=== PATIENT | female | born 1995 | race Caucasian/White ===

== ENCOUNTER 2020-08-04 15:40 | Observation (INO) | payer OTHER, SELFPAY ==
[2020-08-04 16:38] VITALS: BMI 34.8
[2020-08-04 16:40] VITALS: BP 128/77; PULSE 87
--- NOTE | 2020-08-04 16:40 | OBADM ---
This patient, Farzana Johnson, admitted to the OB room Labor/Delivery/Recovery 119 for observation. Patient is oriented to hospital policies and general routines including ID bracelet, bed and alarms, visiting hours, pain management, procedures, bathroom and other care routines, personal items, smoking policy, room service/diet, call light, and visiting hours. Patient is encouraged to report perceived risks to care and to ask questions if she does not understand what she is told or what she should do.
--- NOTE | 2020-08-24 09:08 | PM.OBTRLD ---
OB - Triage/Final Diagnosis Visit Information Comments/Additional reasons for admission: I have assessed the risk for this patient, Farzana Johnson, and determined that she would benefit from observation care. Final Diagnosis (1) Abdominal pain affecting : Code(s): O26.899 - Other specified related conditions, unspecified trimester; R10.9 - Unspecified abdominal pain Status: Acute
== END 2020-08-04 17:22 | disposition home or self-care (01) ==
PROVIDERS: Admitting Provider Obstetrics & Gynecology; PCP Family Medicine; Visit Provider Obstetrics & Gynecology
DX: O26.899 Other specified pregnancy related conditions, unspecified trimester (principal); R10.9 Unspecified abdominal pain; Z3A.00 Weeks of gestation of pregnancy not specified
CPT/HCPCS: G0378; G0379

== ENCOUNTER 2020-08-15 10:02 | Inpatient (IN) | payer OTHER, SELFPAY ==
[2020-08-15] VITALS (59 sets, daily range): BP systolic 87–143; BP diastolic 55–106; PULSE 66–115; RESP 16; TEMP 36.2–36.6; O2SAT 92–100; BMI 36.1
[2020-08-15] MEDS: LACTATED RINGERS 1,000 ML 999 ML IV CONT (12:39)
--- NOTE | 2020-08-15 12:42 | OBADM ---
This patient, Farzana Johnson, admitted to the OB room Labor/Delivery/Recovery 105 for observation. Patient/family oriented to hospital policies and general routines including ID bracelet, bed and alarms, visiting hours, pain management, procedures, bathroom and other care routines, personal items, smoking policy, room service/diet, and visiting hours. Patient/Family are encouraged to report perceived risks to care and to ask questions if they do not understand what they are told or what they should do.
--- NOTE | 2020-08-15 13:13 | P.PNOB_ITS ---
OB - Triage/Final Diagnosis Visit Information Date of evaluation: 08/15/20 Reason for evaluation: threatened labor Comments/Additional reasons for admission: I have assessed the risk for this patient, Farzana Johnson, and determined that she would benefit from obse rvation care.
--- NOTE | 2020-08-15 14:14 | WPDANESEPPF ---
Anes - Initial Pre Proc Eval Date/Time: 08/15/20 14:14 Surgeon: Castro Araya MD Pre Op Diagnosis: ctx Patient Data Age: 24 Gender: F Height: Weight: Allergies Allergy/AdvReac Type Severity Reaction Status Date / Time Penicillins Allergy Unknown rash Verified 08/04/20 16:37 Home Medications Medication Instructions Recorded Confirmed Type prenat.vits,francisco,[id number] 1 tablet PO DAILY 08/04/20 08/15/20 History Patient hx anesthesia problems: none Family hx anesthesia problems: none PMFSH Past Medical History Medical History (Updated 08/15/20 @ 14:14 by Castro Hernandez MD) Lumbar paraspinal muscle spasm Surgical History Surgical History (Updated 08/15/20 @ 14:14 by Castro Hernandez MD) Hx of tonsillectomy Family History Family History Grandparent Family history of heart disease in male family member before age 55 Hypertension Mother Hypertension Social History Social History Smoking status: Never smoker Alcohol intake: never Substance use: never Spiritual care concerns: No Anes - Eval Final PreProcedure Day of Procedure 08/15/20 14:14 Patient weight: overweight Heart: regular rate and rhythm Lungs: clear to auscultation Airway: Mallampati scale class II Neurological: alert and oriented Last oral intake: >/= 8 hours ASA classification: II Emergent: no Anesthetic plan: proceed Anesthesia type and monitoring: regional spinal and standard monitoring Informed Consent: The patient's anesthetic plan and its attendant risks and benefits were discussed with the patient/family/POA. Questions were solicited and answers provided to the satisfaction of the patient/family/POA.
[2020-08-15 14:23] LABS: Basophils Percent Auto 0.1 % (0.2-1.2); Eosinophils Percent Auto 0.1 % (0-4.4); Hematocrit 36.4 % (37.0-47.0); Hemoglobin 11.7 g/dL (12.0-15.0); Immature Granulocyte Absolute 0.06 K/mm3 (0.00-0.031); Immature Granulocyte Percent A 0.5 % (0-0.5); Lymphocytes Absolute Auto 1.46 K/mm3 (0.9-3.2); Lymphocytes Percent Auto 11.1 % (18.3-44.2); Mean Corpuscular HGB Conc 32.1 g/dl (32-36); Mean Corpuscular Hemoglobin 27.9 pg (26-34); Mean Corpuscular Volume 86.7 fl (80-100); Mean Platelet Volume 10.3 fl (7.4-10.4); Monocytes Absolute Auto 0.6 K/mm3 (0.1-0.6); Monocytes Percent Auto 4.4 % (2.6-8.5); Neutrophils Percent Auto 83.8 % (45.5-73.1); Platelet Count Result 179 k/mm3 (150-375); Red Cell Distribution Width 14.3 % (11.5-14.5); White Blood Count 13.1 K/mm3 (4.5-10.0)
[2020-08-15] MEDS: LACTATED RINGERS 1,000 ML 125 ML IV CONT (14:25)
--- NOTE | 2020-08-15 14:30 | PM.IMHP ---
H&P: HPI History of Present Illness Date/Time: 08/15/20 14:30 24-year-old 2 para 0010 is admitted at term in active labor for section. She had an active HSV and refuses attempted vaginal delivery. Risks and benefits reviewed Chief Complaint: labor Review of Systems Review of Systems: All systems reviewed & are unremarkable except as noted in HPI and below PMFSH Past Medical History Medical History Lumbar paraspinal muscle spasm Surgical History Surgical History Hx of tonsillectomy Family History Family History Grandparent Family history of heart disease in male family member before age 55 Hypertension Mother Hypertension Social History Social History Smoking status: Never smoker Alcohol intake: never Substance use: never Spiritual care concerns: No Meds Home Medications and Allergies Home Medications Medication Instructions Recorded Confirmed Type prenat.vits,francisco,[id number] 1 tablet PO DAILY 08/04/20 08/15/20 History Allergies Allergy/AdvReac Type Severity Reaction Status Date / Time Penicillins Allergy Unknown rash Verified 08/04/20 16:37 Vital Signs Vital Signs - 24 hr 08/15/20 14:16 Pulse Rate 89 Blood Pressure 143/78 H Exam Const: General: no acute distress Eyes: General: appearance normal, both eyes and all related structures Neck: Neck: supple and no JVD Thyroid: thyroid normal Resp: Effort & Inspection: normal respiratory effort Auscultation: clear to auscultation bilaterally Cardio: Rate: regular rate Rhythm: regular rhythm GI: Inspection: non-distended GI Palp: Yes Soft to palpation, No Tenderness to palpation present (GI) and No Guarding due to palpation present (GI) Auscultation: normal bowel sounds : General: Yes bladder normal to palpation External Female Exam: normal external appearance Speculum Exam - Vagina: normal vaginal discharge and No vaginal bleeding Speculum Exam - Cervix: nontender Bimanual exam- vagina & uterus: bladder normal to palpation and No Cervical tenderness present OB/external & speculum: No vaginal bleeding Skin: General skin exam: no rashes or lesions noted Extrem: General: normal to inspection and no edema Psych: Mental Status: mental status grossly normal Affect: normal affect H&P: Results Labs Labs: Short CBC 08/15/20 Range/Units 14:15 WBC 13.1 H (4.5-10.0) K/mm3 Hgb 11.7 L (12.0-15.0) g/dL Hct 36.4 L (37.0-47.0) % Plt Count 179 (150-375) k/mm3 Assessment and Plan Additional Plan impression: Term in active labor plan Plan: Low-transverse section
--- NOTE | 2020-08-15 14:33 | WPDHPUPDATE1 ---
History and Physical Update Update Date/Time: 08/15/20 14:33 History and Physical has been reviewed, including an updated exam of the patient. There are NO changes in the patient's condition. Risks, benefits, and alternatives have been discussed and questions answered. Patient agrees to proceed with procedure.
--- NOTE | 2020-08-15 15:20 | PM.PROC ---
Procedure Note - Detailed Date of procedure: 08/15/20 Pre-op diagnosis: ctx Surgeon: Castro Araya MD Postop diagnosis: 37 half week with active HSV in active labor Procedure: Low-transverse section Anesthesia: Spinal EBL: 545cc Findings: Female infant 37 and half weeks with weight of 711 and good cry Complications: Description of procedure: The patient was admitted in active labor. She did active HSV within the last week. Decision for low-transverse section was undertaken. She has taken the back. She was prepped and draped placed in the supine position. Under excellent spinal anesthetic the abdomen was entered in Pfannenstiel fashion progressive layers to the fascia. The fascia was incised in upward outward fashion bilaterally. The underlying muscles were sharply dissected and the parietal peritoneum elevated by Kimber clamps. This incision was carried superiorly and inferiorly the dome of the bladder. A bladder blade was placed and a bladder flap formed. The bladder blade replaced in the low-transverse incision made. The head delivered in the ALEXIS position. And anterior and posterior shoulder delivered spontaneously. Cord clamped x2 and cut and infant passed off the table with an excellent cry. Placenta delivered intact manually. Uterus delivered on the abdomen wrapped in a moist towel. After assuring no membranes or debris made in the uterus uterus was closed with continuous running locking 0 Vicryl from lateral edge to lateral edge. This was followed by a 2nd imbricating running 0 Vicryl from lateral edge to lateral edge. Hemostasis was assured. Ovaries and tubes appeared within normal limits. The uterus was returned to the abdomen the uterine incision inspected 1 last time. Hemostasis was assured. Laps were removed and accounted for. The fascia closed with continuous running 0 Vicryl from lateral edge to midline bilaterally. Irrigation the subcutaneous layer and the skin closed with 4 O Monocryl and glue. Blood loss was quantitated at 5:45 a.m.. All sponge, needle, instrument counts were correct. There were no complications noted
[2020-08-15] MEDS: ceFAZolin 2 GM/D5W 50 ML 2 GM/50 ML BAG IVPB (15:27)
--- NOTE | 2020-08-15 16:13 | LDADM ---
This patient, Farzana Johnson, was admitted to Labor/Delivery/Recovery 105 on 08/15/20 at 10:02. Plans for labor, pain management and were discussed with patient. Patient/family oriented to hospital policies and general routines including ID bracelet, bed and alarms, visiting hours, pain management, procedures, bathroom and other care routines, personal items, smoking policy, room service/diet and guest tray routines, security routines, call light, and visiting hours. Patient/Family are encouraged to report perceived risks to care and to ask questions if they do not understand what they are told or what they should do. Preparing for a section. See OBIX for further documentation.
[2020-08-15] MEDS: OXYTOCIN 30 UNITS/NS 500 ML 30 UNITS/500 ML BAG 125 UNITS IV CONT (16:45)
--- NOTE | 2020-08-15 19:19 | OBPPTRN ---
Patient transferred to post room #280 via stretcher. Support person present. Oriented to unit, room, information board, rooming in, admission packet and security measures. Patient verbalizes understanding. Infant with patient.
[2020-08-16] VITALS: BP 112/56; PULSE 88; RESP 16; TEMP 36.4; O2SAT 99
[2020-08-16] MEDS: HYDROcodone/acetaminophen (*CRX) 5-325 MG TABLET 1 TAB PO ×4 (05:29→23:14)
[2020-08-16] MEDS: IBUPROFEN 600 MG TABLET PO ×4 (05:29→23:15)
[2020-08-16 05:30] VITALS: BP 99/60; PULSE 77; RESP 16; TEMP 36.7; O2SAT 100
[2020-08-16 05:59] LABS: Basophils Percent Auto 0.1 % (0.2-1.2); Eosinophils Percent Auto 0.1 % (0-4.4); Hematocrit 30.7 % (37.0-47.0); Hemoglobin 9.8 g/dL (12.0-15.0); Immature Granulocyte Absolute 0.06 K/mm3 (0.00-0.031); Immature Granulocyte Percent A 0.4 % (0-0.5); Lymphocytes Absolute Auto 2.01 K/mm3 (0.9-3.2); Lymphocytes Percent Auto 14.2 % (18.3-44.2); Mean Corpuscular HGB Conc 31.9 g/dl (32-36); Mean Corpuscular Hemoglobin 27.9 pg (26-34); Mean Corpuscular Volume 87.5 fl (80-100); Mean Platelet Volume 10.8 fl (7.4-10.4); Monocytes Absolute Auto 1.3 K/mm3 (0.1-0.6); Monocytes Percent Auto 9.3 % (2.6-8.5); Neutrophils Absolute Auto 10.7 K/mm3 (1.3-6.7); Neutrophils Percent Auto 75.9 % (45.5-73.1); Platelet Count Result 162 k/mm3 (150-375); Red Blood Count 3.51 M/mm3 (4.2-5.4); Red Cell Distribution Width 14.3 % (11.5-14.5); White Blood Count 14.2 K/mm3 (4.5-10.0)
--- NOTE | 2020-08-16 07:49 | WPDANLDPN2 ---
Anes-Prog Note L&D Date/Time: 08/16/20 07:49 Comfortable throughout: section Neuraxial method: spinal Epidural/Spinal procedure site: clean & non-tender Neuro status: Neuro function grossly intact. Cardiovascular status: normal Respiratory status: normal Airway patency: baseline Mental status: baseline Post-Op hydration status: normal Vital Signs: Last Vital Signs Temp 36.7 C 08/16/20 05:30 Pulse 77 08/16/20 05:30 Resp 16 08/16/20 05:30 BP 99/60 L 08/16/20 05:30 Pulse Ox 100 08/16/20 05:30 Pain score (VAS): 3 I/O: Intake & Output 08/15/20 08/15/20 08/16/20 15:59 23:59 07:59 Intake Total 1050 480 Output Total 628 189 6981 Balance 000 -803 -7943 Post-procedural complaints: none Patient feedback: Patient satisfied with anesthetic care.
--- NOTE | 2020-08-16 07:49 | WPDANLDNPN2 ---
Anes-Prog Note L&D-Neuraxial Date/Time: 08/16/20 07:49 Neuraxial medications: intrathecal PF morphine Opiod-related complaints: none Patient feedback: Patient satisfied with post-operative pain management.
[2020-08-16] MEDS: DOCUSATE SODIUM 100 MG CAPSULE PO ×2 (08:05→17:17)
[2020-08-16] MEDS: MULTIVIT/MIN/PREN/FOL AC/IRON TABLET 1 TAB PO (08:05)
[2020-08-16] MEDS: SIMETHICONE 80 MG TAB.CHEW PO (08:05)
[2020-08-16] MEDS: POLYSACCHARIDE IRON COMPLEX 150 MG CAPSULE PO ×2 (08:05→17:16)
--- NOTE | 2020-08-16 08:10 | P.PNOB_ITS ---
OB - PN: Subj Subjective Date/time seen: 08/16/20 08:10 Interval history: Patient doing well this AM. she is ambulating out of bed. She is tolerating PO. She reports adequate pain control. Her bleeding is normal and she reports normal lochia. She denies fever, chills, N/V. She has passed flatus. Patient comments: no complaints and pain well controlled; no flatus present OB - PN: Obj Data Labs CBC & Chem 7: 08/16/20 05:34 Labs: Laboratory Results - last 24 hr 08/15/20 08/15/20 08/16/20 14:15 14:15 05:34 WBC 13.1 H 14.2 H RBC 4.20 3.51 L Hgb 11.7 L 9.8 L Hct 36.4 L 30.7 L MCV 86.7 87.5 MCH 27.9 27.9 MCHC 32.1 31.9 L RDW 14.3 14.3 Plt Count 179 162 MPV 10.3 10.8 H Immature Gran % (Auto) 0.5 0.4 Neut % (Auto) 83.8 H 75.9 H Lymph % (Auto) 11.1 L 14.2 L Becker % (Auto) 4.4 9.3 H Eos % (Auto) 0.1 0.1 Baso % (Auto) 0.1 L 0.1 L Lymph # (Auto) 1.46 2.01 Becker # (Auto) 0.6 1.3 H Eos # (Auto) 0.0 0.0 Baso # (Auto) 0.0 0.0 Abs Immat Gran (auto) 0.06 H 0.06 H Absolute Neuts (auto) 11.0 H 10.7 H Absolute Nucleated RBC 0.0 0.0 Nucleated RBC % 0.0 0.0 Blood Type O Positive Antibody Screen Negative OB - PN A/P Plan day: 1 Plan: routine care Comments: patient doing well this AM s/p paez advance diet as tolerated H/H stable continue routine PP care Time Spent With Patient Time: Total time spent is greater than 50% in coordination of care (as documented) at patient's floor/unit and/or counseling patient: Time with patient: less than 15 minutes Review of Systems Constitutional: Constitutional: Reports no additional constitutional complaints Cardiovascular: Cardiovascular: Reports no additional cardiovascular complaints Respiratory: Respiratory: Reports no additional respiratory complaints Gastrointestinal: Gastrointestinal: Reports no additional gastrointestinal co mplaints Genitourinary: Genitourinary: Reports no additional female genitourinary complaints Exam Const: General: comfortable and no acute distress Resp: Effort & Inspection: normal respiratory effort Auscultation: clear to auscultation bilaterally Cardio: Rate: regular rate GI: GI Palp: Yes Soft to palpation and Yes Tenderness to palpation present (GI) (appropriately tender around incision ) Auscultation: normal bowel sounds Other: fundus firm and below umbilicus Incision C/D/I Urinary Catheter: Urinary Catheter: urine clear Psych: Appearance: grossly normal Mental Status: mental status grossly normal Affect: normal affect
[2020-08-16 08:50] VITALS: BP 119/58; PULSE 88; RESP 18; TEMP 36.3; O2SAT 100
[2020-08-16 12:50] VITALS: BP 117/70; PULSE 81; RESP 17; TEMP 36.2; O2SAT 99
[2020-08-16 19:45] VITALS: BP 110/53; PULSE 79; RESP 16; TEMP 36.9; O2SAT 100
--- NOTE | 2020-08-16 19:45 | PC.NURSE ---
Patient viewed the discharge video Mother & Baby Care, The First Two Weeks online. Patient was given the opportunity and encouraged to ask questions. Patient verbalized understanding of information shared and has been given the mother/baby guide for home reference.
[2020-08-17] MEDS: HYDROcodone/acetaminophen (*CRX) 5-325 MG TABLET 1 TAB PO ×2 (07:34→14:07)
[2020-08-17] MEDS: IBUPROFEN 600 MG TABLET PO ×2 (07:34→14:07)
[2020-08-17] MEDS: POLYSACCHARIDE IRON COMPLEX 150 MG CAPSULE PO (07:34)
[2020-08-17] MEDS: DOCUSATE SODIUM 100 MG CAPSULE PO (07:35)
[2020-08-17] MEDS: MULTIVIT/MIN/PREN/FOL AC/IRON TABLET 1 TAB PO (07:35)
[2020-08-17] MEDS: SIMETHICONE 80 MG TAB.CHEW PO ×2 (07:35→14:07)
--- NOTE | 2020-08-17 08:15 | PM.OBDSVD ---
DS: Admitting Diagnosis Admitting Diagnosis Admitting Diagnosis: intrauterine at term OB - DS: Summary OB Procedures : None OB Procedures Intrapartum: OB Procedures: : None Peripartum Data Infant Delivery Method: Section Procedures: Procedures Operation Date: 08/15/20 14:40 Actual Procedures Side Surgeon p Section Castro Araya MD complications: none Status at Discharge Functional status at discharge: independent ambulation Overall status at discharge: patient is progressing back to baseline Time Spent with Patient Time attestation: Total time spent providing and/or coordinating discharge services: Time spent: Less than 30 minutes Exam Const: General: comfortable and no acute distress Resp: Effort & Inspection: normal respiratory effort Auscultation: clear to auscultation bilaterally Cardio: Rate: regular rate GI: Inspection: non-distended GI Palp: Yes Soft to palpation, No Firmness to palpation present (GI), Yes Tenderness to palpation present (GI) (mild tenderness over incision ) and No Guarding due to palpation present (GI) Auscultation: normal bowel sounds Psych: Appearance: grossly normal Mental Status: mental status grossly normal Discharge Plan Discharge Attending physician on discharge: Castro Araya Discharging Clinician: Castro Araya Patient Disposition: Home, Self-Care Activity: may shower, no straining, may drive after 2 weeks and pelvic rest Diet: heart healthy Patient Instructions: Antibiotic Form, (DC) Stand Alone Forms: General Discharge Information Follow-up/Referrals: Castro Araya MD [Physician] - Discharge Medications: New hydrocodone-acetaminophen 5-300 mg tablet 1 tablet PO Q6H PRN (Reason: pain) Qty: 30 RF: 0 acetaminophen [Mapap (acetaminophen)] 325 mg Tablet 650 mg PO Q6H PRN (Reason: Mild Pain (1-3)) Qty: 30 RF: 0 ibuprofen 600 mg Tablet 600 mg PO Q6H PRN (Reason: Cramping) Qty: 30 RF: 0 Continued prenat.vits,francisco,[id number] Tablet 1 tablet PO DAILY RF: 0 Date of admission: 08/15/20 10:02 Primary Care Provider: Jasson Grimes Admitting Provider: Castro Araya Attending physician on admission: Castro Araya Condition: Stable
[2020-08-17 11:56] VITALS: BP 109/63; PULSE 82; RESP 16; TEMP 36.7; O2SAT 93
[2020-08-17 12:08] VITALS: PULSE 79; RESP 16; O2SAT 100
[2020-08-18 07:41] LABS: Rapid Plasma Reagin Non-Reactive (NonReactive)
[2020-08-20 09:36] VITALS: BP 135/80; PULSE 61; RESP 16; TEMP 36.6; O2SAT 100
== END 2020-08-17 15:05 | disposition home or self-care (01) | DRG 787 ==
LOC: ANHLDR 14:33 → ANHOB2 08-17 08:16 → ANHLDR 08-19 14:47 → ANHOB2 08-19 14:47
PROVIDERS: Admitting Provider Obstetrics & Gynecology; PCP Family Medicine; Visit Provider Student in an Organized Health Care Education/Training Program
PROC: 10D00Z1 Extraction of Products of Conception, Low, Open Approach (ICD-10-PCS; CPT 59514; principal; 2020-08-15 14:40)
DX: O99.824 Streptococcus B carrier state complicating childbirth (principal); Z37.0 Single live birth; Z3A.37 37 weeks gestation of pregnancy; O69.81X0 Labor and delivery complicated by cord around neck, without compression, not applicable or unspecified; O98.32 Other infections with a predominantly sexual mode of transmission complicating childbirth; B00.9 Herpesviral infection, unspecified
CPT/HCPCS: 36415; 85025; 86592; 86850; 86900; 86901; A9270; J0131; J0690; J1100; J2274; J2405; J2590; J7120

== ENCOUNTER 2022-09-23 14:15 | Inpatient (IN) | payer OTHER, SELFPAY ==
--- NOTE | 2022-09-22 16:26 | HP_ITS ---
This report was moved to the correct visit on 09/27/2022. Original report was signed by Castro Arenas MD on 09/22/22 [id number]. H&P: HPI History of Present Illness Date/Time: 09/22/22 16:24 Chief Complaint: Term previous section/sterilization Narrative: A 26-year-old female at term with previous section who desires permanent sterilization. Alternatives including not exclusive of pills patches injections IUDs implants etc. were all reviewed. Failure rate of 07/999 a subsequent risk of ectopic bleeding and reviewed as well. [facility] Past Medical History Medical History Lumbar paraspinal muscle spasm Surgical History Surgical History Hx of tonsillectomy Family History Family History Grandparent Family history of heart disease in male family member before age 55 Hypertension Mother Hypertension Social History Social History Smoking status: Never smoker Alcohol intake: never Substance use: never Spiritual care concerns: No Meds Home Medications and Allergies Home Medications Medication Instructions Recorded Confirmed Type prenat.vits,francisco,tqb-vuhw-jrpch 1 tablet PO DAILY 08/04/20 08/15/20 History Allergies Allergy/AdvReac Type Severity Reaction Status Date / Time Penicillins Allergy Unknown rash Verified 09/04/22 15:31 Exam Const: General: cooperative, healthy appearing, comfortable and average body habitus Orientation/consciousness: oriented to person, oriented to place and oriented to time HENMT: Head: normal to inspection Resp: Effort & Inspection: normal respiratory effort Cardio: Rate: regular rate Rhythm: regular rhythm Heart sounds: S1 normal heart sound present and S2 normal heart sound present GI: Inspection: normal to inspection (Gravid soft uterus) Percussion: Yes normal to percussion : External Female Exam: normal external appearance Speculum Exam - Vagina: normal appearance of the vagina Assessment and Plan Assessment and plan (1) Term : Code(s): Z34.90 - Encounter for supervision of normal , unspecified, unspecified trimester Status: Acute (2) Previous section: Code(s): Z98.891 - History of uterine scar from previous surgery Status: Acute (3) Sterilization: Code(s): Z30.2 - Encounter for sterilization Status: Acute Plan Repeat low transverse section/bilateral tubal ligation This report may have been done utilizing a voice recognition system. Attempts have been made to correct errors. However, there may be uncorrected grammatical, spelling, and recognition errors present. Report Initialized date/time: Castro Arenas MD 09/22/221625 Electronically signed by: Castro Arenas MD 09/22/221625 [facility]
[2022-09-23] VITALS (46 sets, daily range): BP systolic 98–151; BP diastolic 46–121; PULSE 67–99; RESP 12–22; TEMP 36.2–36.8; O2SAT 97–100; BMI 36.5
[2022-09-23 15:09] LABS: Basophils Percent Auto 0.2 % (0.2-1.2); Eosinophils Percent Auto 0.3 % (0-4.4); Hematocrit 34.5 % (37.0-47.0); Hemoglobin 11.2 g/dL (12.0-15.0); Immature Granulocyte Absolute 0.07 K/mm3 (0.00-0.031); Immature Granulocyte Percent A 0.7 % (0-0.5); Lymphocytes Absolute Auto 1.74 K/mm3 (0.9-3.2); Lymphocytes Percent Auto 17.1 % (18.3-44.2); Mean Corpuscular HGB Conc 32.5 g/dl (32-36); Mean Corpuscular Hemoglobin 27.5 pg (26-34); Mean Corpuscular Volume 84.6 fl (80-100); Mean Platelet Volume 10.3 fl (7.4-10.4); Monocytes Absolute Auto 0.4 K/mm3 (0.1-0.6); Monocytes Percent Auto 4.3 % (2.6-8.5); Neutrophils Absolute Auto 7.9 K/mm3 (1.3-6.7); Neutrophils Percent Auto 77.4 % (45.5-73.1); Platelet Count Result 167 k/mm3 (150-375); Red Blood Count 4.08 M/mm3 (4.2-5.4); Red Cell Distribution Width 14.2 % (11.5-14.5); White Blood Count 10.2 K/mm3 (4.5-10.0)
[2022-09-23 15:16] LABS: Creatinine Urine 198.9 mg/dL; Total Protein Urine Random 28 mg/dL; Ur Ttl Prot Creatinine Ratio 0.14 mg/mg (0-0.20)
[2022-09-23 15:21] LABS: Alanine Aminotransferase 22 U/L (6-35); Albumin Level 3.4 g/dL (3.5-5.1); Alkaline Phosphatase 108 U/L (38-126); Anion Gap 4 mmol/L (8-16); Aspartate Amino Transferase 35 U/L (14-36); Bilirubin,Total 0.6 mg/dL (0.2-1.3); Blood Urea Nitrogen 6 mg/dL (7-17); Calcium 8.4 mg/dL (8.4-10.2); Carbon Dioxide 26 mmol/L (22-30); Chloride 106 mmol/L (98-107); Estimated Glomerular Filt Rate > 60; Glucose 112 mg/dL (65-110); Potassium 3.6 mmol/L (3.4-5.0); Sodium 136 mmol/L (137-145); Uric Acid 4.3 mg/dL (2.5-7.5)
[2022-09-23 15:32] LABS: Appearance Urine Clear (Clear); Bacteria Urine Rare /hpf; Bilirubin Urine Negative (Negative); Blood Urine Negative (Negative); Color Urine Yellow (Yellow); Glucose Urine UA Negative (Negative); Ketones Urine 2+ mg/dL (Negative); Leukocyte Esterase Ur 1+ LEU/UL (Negative); Need Manual Microscopic Reviewed; Nitrate Urine Negative (Negative); Non Pathogenic Casts 0-2; Protein Urine 1+ mg/dL (Negative); RBC Urine 0-2 /hpf (0-2); Specific Grav Ur 1.024 (1.001-1.035); Squamous Epithelial Cell Urine Few /hpf (Few); Urobilinogen Urine 0.2 mg/dL (<2.0); WBC Urine 0-5 /hpf
[2022-09-23 15:33] LABS: Add Urine Microscopic? YES
--- NOTE | 2022-09-23 15:41 | PC.NURSE ---
Dr. Kalina Hoyos informed of BP's, reactive NST, and lab results. Discussed pt having mild to moderate contractions angus 4-6 mins. states SVE in office was closed. would like to go ahead and do pt's C/S tonight instead of in the morning.
--- NOTE | 2022-09-23 16:02 | WPDHPUPDATE1 ---
History and Physical Update Update Date/Time: 09/23/22 16:02 History and Physical has been reviewed, including an updated exam of the patient. There are NO changes in the patient's condition. Risks, benefits, and alternatives have been discussed and questions answered. Patient agrees to proceed with procedure. The patient was admitted today with elevated blood pressures and regular contractions. Will proceed with repeat and tubal ligation this evening
--- NOTE | 2022-09-23 16:03 | PM.DS ---
DS: Admitting Diagnosis Discharge Date 07/26/22 Admitting Diagnosis term /gestational hypertension/sterilization DS: Discharge Diagnosis Discharge Diagnosis (1) Sterilization: Code(s): Z30.2 - Encounter for sterilization Status: Acute (2) Previous section: Code(s): Z98.891 - History of uterine scar from previous surgery Status: Acute (3) Term : Code(s): Z34.90 - Encounter for supervision of normal , unspecified, unspecified trimester Status: Acute (4) Gestational [-induced] hypertension without significant proteinuria, complicating childbirth: Code(s): O13.4 - Gestational [-induced] hypertension without significant proteinuria, complicating childbirth Status: Acute DS: Summary Hospital Course Reason for hospitalization: patient underwent repeat section and bilateral tubal ligation on 09/23/2022. Hospital Course: The patient underwent 100 the procedure on 09/23 22. Her hospital course was unremarkable. She remained afebrile. She was up, voiding without difficulty, eating regular diet, ambulating, generally without complaints. Time Spent with Patient Time attestation: Total time spent providing and/or coordinating discharge services: Exam Const: General: cooperative, healthy appearing, comfortable and average body habitus Orientation/consciousness: oriented to person, oriented to place and oriented to time HENMT: Head: normal to inspection Resp: Effort & Inspection: normal respiratory effort Cardio: Rate: regular rate Rhythm: regular rhythm Heart sounds: S1 normal heart sound present and S2 normal heart sound present GI: Inspection: normal to inspection and incision ( Wound clean dry and intact) : External Female Exam: normal external appearance Speculum Exam - Vagina: normal appearance of the vagina DS: Data Data Completed and Pending Labs on day of discharge: Labs from last 24 hours 09/23/22 14:55 WBC 10.2 H RBC 4.08 L Hgb 11.2 L Hct 34.5 L MCV 84.6 MCH 27.5 MCHC 32.5 RDW 14.2 Plt Count 167 MPV 10.3 Immature Gran % (Auto) 0.7 H Neut % (Auto) 77.4 H Lymph % (Auto) 17.1 L Harnett % (Auto) 4.3 Eos % (Auto) 0.3 Baso % (Auto) 0.2 Lymph # (Auto) 1.74 Harnett # (Auto) 0.4 Eos # (Auto) 0.0 Baso # (Auto) 0.0 Abs Immat Gran (auto) 0.07 H Absolute Neuts (auto) 7.9 H Absolute Nucleated RBC 0.0 Nucleated RBC % 0.0 Sodium 136 L Potassium 3.6 Chloride 106 Carbon Dioxide 26 Anion Gap 4 L BUN 6 L Creatinine 0.60 L Estim Creat Clear Calc Not Reportable Estimated GFR > 60 Glucose 112 H Uric Acid 4.3 Calcium 8.4 Total Bilirubin 0.6 AST 35 ALT 22 Alkaline Phosphatase 108 Total Protein 6.0 L Albumin 3.4 L Urine Color Yellow Urine Appearance Clear Urine pH 6.0 Ur Specific Horatio 1.024 Urine Protein 1+ H Urine Glucose (UA) Negative Urine Ketones 2+ H Ur Blood (Man) Negative Urine Nitrate Negative Urine Bilirubin Negative Urine Urobilinogen 0.2 Add Ur Microanalysis Reviewed Leukocyte Esterase Rfl 1+ H Urine RBC 0-2 Urine WBC 0-5 Ur Squamous Epith Cells Few Urine Bacteria Rare Urine Casts 0-2 U Random Total Protein 28 Urine Creatinine 198.9 Protein/Creat Ratio 2 0.14 RPR Pending Blood Type O Positive Antibody Screen Negative Discharge Plan Discharge Attending physician on discharge: Castro Arenas Discharging Clinician: Castro Arenas Patient Disposition: Home, Self-Care Activity: may shower, no straining and pelvic rest Diet: regular Wound Care Instructions: incision open to air Discharge Instructions: Education: Mom and Baby Guide Given to: Mother Follow-Up: Call your delivering provider's office for an appointment to be seen in: 4 Weeks Mom and baby should come to the [facility] for the follow-up appointment. Appointment Date/Time: September 27, 2022 at 8:
--- NOTE | 2022-09-23 16:15 | WPDANESEPPF ---
Anes - Initial Pre Proc Eval Date/Time: 09/23/22 16:15 Surgeon: Castro Hoyos MD Pre Op Diagnosis: [facility] Patient Data Age: 26 Gender: F Height: 1.73 m Weight: 109 kg Last Vital Signs Temp 36.8 C 09/23/22 15:23 Pulse 93 09/23/22 15:46 Resp 18 09/23/22 15:23 BP 136/83 09/23/22 15:46 Allergies Allergy/AdvReac Type Severity Reaction Status Date / Time Penicillins Allergy Unknown rash Verified 09/04/22 15:31 Home Medications Medication Instructions Recorded Confirmed Type prenat.vits,francisco,bfc-[id number] 1 tablet PO DAILY 08/04/20 08/15/20 History hydrocodone 5 mg-acetaminophen 325 1 tablet PO Q4H PRN pain #30 tabs 09/23/22 Rx mg tablet Laboratory Tests 09/23/22 14:55 WBC 10.2 H K/mm3 (4.5-10.0) RBC 4.08 L M/mm3 (4.2-5.4) Hgb 11.2 L g/dL (12.0-15.0) Hct 34.5 L % (37.0-47.0) MCV 84.6 fl (80-100) MCH 27.5 pg (26-34) MCHC 32.5 g/dl (32-36) RDW 14.2 % (11.5-14.5) Plt Count 167 k/mm3 (150-375) MPV 10.3 fl (7.4-10.4) Immature Gran % (Auto) 0.7 H % (0-0.5) Neut % (Auto) 77.4 H % (45.5-73.1) Lymph % (Auto) 17.1 L % (18.3-44.2) Delta % (Auto) 4.3 % (2.6-8.5) Eos % (Auto) 0.3 % (0-4.4) Baso % (Auto) 0.2 % (0.2-1.2) Lymph # (Auto) 1.74 K/mm3 (0.9-3.2) Delta # (Auto) 0.4 K/mm3 (0.1-0.6) Eos # (Auto) 0.0 K/mm3 (0-0.3) Baso # (Auto) 0.0 K/mm3 (0.0-0.1) Abs Immat Gran (auto) 0.07 H K/mm3 (0.00-0.031) Absolute Neuts (auto) 7.9 H K/mm3 (1.3-6.7) Absolute Nucleated RBC 0.0 K/mm3 (0.0-0.012) Nucleated RBC % 0.0 % (0.0-0.2) Sodium 136 L mmol/L (137-145) Potassium 3.6 mmol/L (3.4-5.0) Chloride 106 mmol/L (98-107) Carbon Dioxide 26 mmol/L (22-30) Anion Gap 4 L mmol/L (8-16) BUN 6 L mg/dL (7-17) Creatinine 0.60 L mg/dL (0.7-1.0) Estim Creat Clear Calc Not Reportable Estimated GFR > 60 (59 - ) Glucose 112 H mg/dL (65-110) Uric Acid 4.3 mg/dL (2.5-7.5) Calcium 8.4 mg/dL (8.4-10.2) Total Bilirubin 0.6 mg/dL (0.2-1.3) AST 35 U/L (14-36) ALT 22 U/L (6-35) Alkaline Phosphatase 108 U/L (38-126) Total Protein 6.0 L g/dL (6.3-8.2) Albumin 3.4 L g/dL (3.5-5.1) Urine Color Yellow (Yellow) Urine Appearance Clear (Clear) Urine pH 6.0 (5.0-9.0) Ur Specific [place] 1.024 (1.001-1.035) Urine Protein 1+ H mg/dL (Negative) Urine Glucose (UA) Negative mg/dL (Negative) Urine Ketones 2+ H mg/dL (Negative) Ur Blood (Man) Negative (Negative) Urine Nitrate Negative (Negative) Urine Bilirubin Negative (Negative) Urine Urobilinogen 0.2 mg/dL (<2.0) Add Ur Microanalysis Reviewed Leukocyte Esterase Rfl 1+ H MAN/UL (Negative) Urine RBC 0-2 /hpf (0-2) Urine WBC 0-5 /hpf Ur Squamous Epith Cells Few /hpf (Few) Urine Bacteria Rare /hpf Urine Casts 0-2 U Random Total Protein 28 mg/dL Urine Creatinine 198.9 mg/dL Protein/Creat Ratio 2 0.14 mg/mg (0-0.20) RPR Pending Blood Type O Positive Antibody Screen Negative Patient hx anesthesia problems: none Family hx anesthesia problems: none Results Review: All pre-operative results and documents have been reviewed as part of the pre-operative evaluation. [facility] Past Medical History Medical History (Updated 09/23/22 @ 16:15 by Castro Hernandez MD) HTN (hypertension) Lumbar paraspinal muscle spasm Surgical History Surgical History Hx of tonsillectomy Family History Family History Grandparent Family history of heart disease in male family member before age 55 Hypertension Mother Hypertension Social History Social History (Reviewed 09/22/22 @ 16:25 by William
[2022-09-23] MEDS: LACTATED RINGERS 1,000 ML 125 ML IV CONT (16:26)
--- NOTE | 2022-09-23 16:29 | LDADM ---
This patient, Farzana Johnson, was admitted to Labor/Delivery/Recovery 119 on 09/23/22 at 14:15. Plans for surgery/ and pain management were discussed with patient. Patient/family oriented to hospital policies and general routines including ID bracelet, bed and alarms, visiting hours, pain management, procedures, bathroom and other care routines, personal items, smoking policy, room service/diet and guest tray routines, infant security routines, and visiting hours. Patient/Family are encouraged to report perceived risks to care and to ask questions if they do not understand what they are told or what they should do. See OBIX for further documentation.
[2022-09-23] MEDS: ceFAZolin 2 GM/D5W 50 ML 2 GM/50 ML BAG IVPB (17:13)
--- NOTE | 2022-09-23 17:22 | SUR.OPER ---
FHT's 140 post spinal.
[2022-09-23] MEDS: KETOROLAC 30 MG/ML VIAL (*BKC) IV PUSH (17:45)
--- NOTE | 2022-09-23 18:12 | P.OP_ITS ---
Procedure Note - Detailed Date of Procedure 09/23/22 Pre-op Diagnosis gestational hypertension/ previous section / term /sterilization Post-op Diagnosis Same Procedure Performed repeat low-transverse section and bilateral tubal ligation via modified Corinne method Surgeon Castro Hoyos MD Anesthesia Spinal Indications a 26-year-old 2 para 1 who was admitted at term with elevated blood pressures and contractions with previous section and desires sterilizat ion Findings male infant Apgars 9 and 9 at 1 and 5minutes respectively normal-appearing ovaries and tubes Description of Procedure patient was prepped draped in the normal sterile fashion placed in supine position. Under excellent spinal anesthetic the abdomen was entered in the previous in Pfannenstiel incision. This was progressive layers of fascia. Fascia carried upward outward fashion bilaterally. Underlying muscles sharply dissected. Parietal peritoneum by Kimber clamps and by sharp scalpel and carried superiorly and inferiorly is dome of the bladder. Bladder blade was placed. Bladder flap was formed. Bladder blade replaced. A low-transverse incision made in the head delivered the ALEXIS position. Anterior posterior shoulder delivered spontaneously after nuchal cord had been relieved around the occiput. Cord clamped x2 and cut passed off the table given Apgars of 9 [id number]. Cord blood was drawn plan. Placenta delivered intact manually and uterus to the the abdomen wrapped in a moist towel. After assuring no membranes or debris remained in the uterus, the uterus was closed with continuous running locking 0 Vicryl lateral edge to lateral edge. This followed by 2nd imbricating running locking 0 Vicryl from lateral edge to lateral edge. Hemostasis was assured. Patient was asked 1 last time about the tubal and she asked for permanent sterilization. The right fallopian tube was grasped at its midportion. A good knuckle of tube free tied with 0 chromic. The peritoneum between pierced and the distal and proximal legs were free tied with 0 chromic. The portion of tube between cut passed off the table marked as portion of right fallopian tube. Hemostasis was assured. The left fallopian tube was grasped and a good knuckle of tube formed its midportion. The peritoneum appears to between and the distal and proximal legs were free tied with 0 chromic. The portion between cut passed off the table and marked as portion of left fallopian tube. Hemostasis was assured. The uterine incision inspected 1 last time noted be hemostatic. Uterus returned to the abdomen. The laps removed and accounted for in the count was normal. The hysterotomy incision inspected 1 last time noted be hemostatic. The fascia closed with continuous running 0 Vicryl and lateral edge to midline bilaterally. Irrigation subcutaneous layer and skin closed with 4 Monocryl glue. Blood loss was 470cc. All sponge, needle, instrument counts were correct. There were no immediate complications mom and baby doing fine at the time of this dictation Estimated Blood Loss 470 Drains No Packing No Pathology Yes ( bilateral portion of tubes) Complications No immediate complications Condition Stable Disposition PACU
--- NOTE | 2022-09-23 19:01 | SUR.PHASEI ---
Elevated BP of 141/121 noted, PT arm currently bent while breast feeding baby. Repeat BP taken.
[2022-09-23] MEDS: OXYTOCIN 30 UNITS/NS 500 ML 30 UNITS/500 ML BAG 125 UNITS IV CONT (20:45)
[2022-09-23] MEDS: LORATADINE 10 MG TABLET PO (22:09)
[2022-09-24] MEDS: DEXTROSE 5%/0.45% SOD CHL 1,000 ML 125 ML IV CONT (00:46)
[2022-09-24 04:35] VITALS: BP 117/75; PULSE 98; RESP 16; TEMP 36.7
[2022-09-24 04:54] LABS: Basophils Percent Auto 0.2 % (0.2-1.2); Eosinophils Percent Auto 0.3 % (0-4.4); Hematocrit 28.2 % (37.0-47.0); Hemoglobin 9.2 g/dL (12.0-15.0); Immature Granulocyte Absolute 0.07 K/mm3 (0.00-0.031); Immature Granulocyte Percent A 0.6 % (0-0.5); Lymphocytes Absolute Auto 1.91 K/mm3 (0.9-3.2); Lymphocytes Percent Auto 15.5 % (18.3-44.2); Mean Corpuscular HGB Conc 32.6 g/dl (32-36); Mean Corpuscular Hemoglobin 27.5 pg (26-34); Mean Corpuscular Volume 84.4 fl (80-100); Mean Platelet Volume 10.7 fl (7.4-10.4); Monocytes Absolute Auto 0.8 K/mm3 (0.1-0.6); Monocytes Percent Auto 6.7 % (2.6-8.5); Neutrophils Absolute Auto 9.5 K/mm3 (1.3-6.7); Neutrophils Percent Auto 76.7 % (45.5-73.1); Platelet Count Result 122 k/mm3 (150-375); Red Blood Count 3.34 M/mm3 (4.2-5.4); Red Cell Distribution Width 14.3 % (11.5-14.5); White Blood Count 12.4 K/mm3 (4.5-10.0)
--- NOTE | 2022-09-24 08:18 | P.PNOB_ITS ---
OB - PN: Subj Subjective Date/time seen: 09/24/22 08:18 Patient comments: no complaints and pain well controlled baby status: doing well OB - PN: Obj Data Labs 09/24/22 04:38 09/23/22 14:55 Labs: Laboratory Results - last 24 hr 09/23/22 09/24/22 14:55 04:38 WBC 10.2 H 12.4 H RBC 4.08 L 3.34 L Hgb 11.2 L 9.2 L Hct 34.5 L 28.2 L MCV 84.6 84.4 MCH 27.5 27.5 MCHC 32.5 32.6 RDW 14.2 14.3 Plt Count 167 122 L MPV 10.3 10.7 H Immature Gran % (Auto) 0.7 H 0.6 H Neut % (Auto) 77.4 H 76.7 H Lymph % (Auto) 17.1 L 15.5 L [place] % (Auto) 4.3 6.7 Eos % (Auto) 0.3 0.3 Baso % (Auto) 0.2 0.2 Lymph # (Auto) 1.74 1.91 [place] # (Auto) 0.4 0.8 H Eos # (Auto) 0.0 0.0 Baso # (Auto) 0.0 0.0 Abs Immat Gran (auto) 0.07 H 0.07 H Absolute Neuts (auto) 7.9 H 9.5 H Absolute Nucleated RBC 0.0 0.0 Nucleated RBC % 0.0 0.0 Sodium 136 L Potassium 3.6 Chloride 106 Carbon Dioxide 26 Anion Gap 4 L BUN 6 L Creatinine 0.60 L Estim Creat Clear Calc Not Reportable Estimated GFR > 60 Glucose 112 H Uric Acid 4.3 Calcium 8.4 Total Bilirubin 0.6 AST 35 ALT 22 Alkaline Phosphatase 108 Total Protein 6.0 L Albumin 3.4 L Urine Color Yellow Urine Appearance Clear Urine pH 6.0 Ur Specific [place] 1.024 Urine Protein 1+ H Urine Glucose (UA) Negative Urine Ketones 2+ H Ur Blood (Man) Negative Urine Nitrate Negative Urine Bilirubin Negative Urine Urobilinogen 0.2 Add Ur Microanalysis Reviewed Leukocyte Esterase Rfl 1+ H Urine RBC 0-2 Urine WBC 0-5 Ur Squamous Epith Cells Few Urine Bacteria Rare Urine Casts 0-2 U Random Total Protein 28 Urine Creatinine 198.9 Protein/Creat Ratio 2 0.14 Blood Type O Positive Antibody Screen Negative OB - PN A/P Plan day: 1 Plan: routine care Time Spent With Patient Time: Total time spent is greater than 50% in coordination of care (as documented) at patient's floor/unit and/or counseling patient: Time with patient: less than 15 minutes Exam Const: General: cooperative, healthy appearing and comfortable Nutritional Appearance: average body habitus Orientation/consciousness: oriented to person, oriented to place and oriented to time Resp: Effort & Inspection: normal respiratory effort Cardio: Rate: regular rate Rhythm: regular rhythm Heart sounds: S1 normal heart sound present and S2 normal heart sound present GI: Inspection: normal to inspection (fundus firm) and incision (cdi)
[2022-09-24 08:25] VITALS: BP 131/78; PULSE 97; RESP 16; TEMP 37; O2SAT 100
[2022-09-24 08:26] LABS: Rapid Plasma Reagin Non-Reactive (NonReactive)
[2022-09-24 08:30] VITALS: PULSE 88; RESP 16; O2SAT 98
[2022-09-24] MEDS: IBUPROFEN 600 MG TABLET PO ×3 (08:34→22:22)
[2022-09-24] MEDS: HYDROcodone/acetaminophen (*CRX) 5-325 MG TABLET 1 TAB PO ×4 (08:34→22:23)
[2022-09-24] MEDS: SIMETHICONE 80 MG TAB.CHEW PO ×4 (08:35→22:28)
[2022-09-24] MEDS: MULTIVIT/MIN/PREN/FOL AC/IRON TABLET 1 TAB PO (08:35)
[2022-09-24] MEDS: DOCUSATE SODIUM 100 MG CAPSULE PO ×3 (08:35→18:08)
[2022-09-24] MEDS: POLYSACCHARIDE IRON COMPLEX 150 MG CAPSULE PO ×2 (08:35→16:40)
--- NOTE | 2022-09-24 09:49 | WPDANLDPN2 ---
Anes-Prog Note L&D Date/Time: 09/24/22 09:49 Comfortable throughout: section Neuraxial method: spinal Epidural/Spinal procedure site: clean & non-tender Neuro status: Neuro function grossly intact. Cardiovascular status: normal Respiratory status: normal Airway patency: baseline Mental status: baseline Post-Op hydration status: normal Vital Signs: Last Vital Signs Temp 36.7 C 09/24/22 04:35 Pulse 98 09/24/22 04:35 Resp 16 09/24/22 04:35 BP 117/75 09/24/22 04:35 Pulse Ox 99 09/23/22 20:26 O2 Del Method Room Air 09/23/22 20:18 Pain score (VAS): 2/10 I/O: Intake & Output 09/23/22 09/24/22 09/24/22 23:59 07:59 15:59 Intake Total 1100 1500 Output Total 620 600 Balance 480 900 Post-procedural complaints: pruritis moderate, treatment effective Patient feedback: Patient satisfied with anesthetic care.
--- NOTE | 2022-09-24 09:50 | WPDANLDNPN2 ---
Anes-Prog Note L&D-Neuraxial Date/Time: 09/24/22 09:50 Neuraxial medications: intrathecal PF morphine Opiod-related complaints: pruritis Patient feedback: Patient satisfied with post-operative pain management.
[2022-09-24 11:44] VITALS: BP 124/71; PULSE 88; RESP 16; TEMP 37.3; O2SAT 98
[2022-09-24 17:30] VITALS: PULSE 88; RESP 16; O2SAT 98
[2022-09-24 22:28] VITALS: BP 137/80; PULSE 97; RESP 16; RESP 18; TEMP 36.7; O2SAT 100
[2022-09-25] MEDS: IBUPROFEN 600 MG TABLET PO (06:26)
[2022-09-25] MEDS: HYDROcodone/acetaminophen (*CRX) 5-325 MG TABLET 1 TAB PO (06:27)
[2022-09-25] MEDS: SIMETHICONE 80 MG TAB.CHEW PO (06:28)
[2022-09-25 08:30] VITALS: BP 143/87; PULSE 100; RESP 18; TEMP 36.9
[2022-09-25] MEDS: DOCUSATE SODIUM 100 MG CAPSULE PO (08:35)
[2022-09-25] MEDS: MULTIVIT/MIN/PREN/FOL AC/IRON TABLET 1 TAB PO (08:35)
[2022-09-25] MEDS: LORATADINE 10 MG TABLET PO (08:36)
[2022-09-25] MEDS: LANOLIN (LANSINOH) 7.5 GM CREAM 1 APPLIC TOPICAL (08:37)
--- NOTE | 2022-09-25 08:47 | PM.OBPNVD ---
OB - PN: Subj Subjective Date/time seen: 09/25/22 08:47 Narrative: Pain OK. Tolerating diet. Would like to go home. OB - PN: Obj Data Labs 09/24/22 04:38 09/23/22 14:55 OB - PN A/P Plan Comments: A: POD#2, doing well. P: Home to f/u 4 weeks. Exam Narrative: AVSS ABD soft, nontender, fundus firm. Incision c/d/i. EXT nontender
[2022-09-25] MEDS: POLYSACCHARIDE IRON COMPLEX 150 MG CAPSULE PO (10:01)
[2022-09-25] MEDS: HYDROcodone/acetaminophen (*CRX) 10-325 MG TABLET 1 TAB PO ×2 (10:01→13:11)
[2022-09-27 07:59] VITALS: BP 140/94; PULSE 101; RESP 18; TEMP 36.9
== END 2022-09-25 08:20 | disposition home or self-care (01) | DRG 785 ==
LOC: ANHOBOP 14:18 → ANHLDR 14:18 → ANHOBOP 16:02 → ANHLDR 16:06 → ANHOB2 09-25 08:50 → ANHLDR 09-28 07:12 → ANHOB2 09-28 07:12
PROVIDERS: Admitting Provider Obstetrics & Gynecology; PCP Family Medicine; Visit Provider Obstetrics & Gynecology
PROC: 10D00Z1 Extraction of Products of Conception, Low, Open Approach (ICD-10-PCS; CPT 59514; principal; 2022-09-23 17:00)
DX: O34.219 Maternal care for unspecified type scar from previous cesarean delivery (principal); Z30.2 Encounter for sterilization; O13.4 Gestational [pregnancy-induced] hypertension without significant proteinuria, complicating childbirth; O69.81X0 Labor and delivery complicated by cord around neck, without compression, not applicable or unspecified; Z3A.38 38 weeks gestation of pregnancy; Z37.0 Single live birth
CPT/HCPCS: 36415; 80053; 81001; 82570; 84156; 84550; 85025; 86592; 86850; 86900; 86901; 88302; A9270; J0131; J0690; J1885; J2175; J2274; J2370; J2405; J2590; J7120

== ENCOUNTER 2023-03-17 00:59 | Day surgery (SDC) | payer OTHER, SELFPAY ==
[2023-03-11 14:25] VITALS: BMI 30.4
--- NOTE | 2023-03-11 14:30 | PC.NURSE ---
Report to the Outpatient Waiting Room, entrance under the green pavilion located off [facility], at time 0700 on date 03/17/23. Planned Procedure Time: 0900. Time changes happen often and if your time is changed the preop area will call you the afternoon before. - You and your visitor will be asked to self-screen and do not enter if you have any COVID symptoms. - A mask is optional within the hospital at this time. Patients may have clear liquids (water, carbonated beverages, clear teas, apple juice) until 3 hours prior to surgery with a maximum of 20 ounces. - No food from midnight until time of surgery Take the following medications with a SIP of water the morning of surgery: N/A DO NOT STOP ANY OF YOUR OTHER PRESCRIPTION MEDICATIONS PRIOR TO SURGERY ?EXCEPT THE FOLLOWING Medications to discontinue per physician: N/A Date to take last dose: N/A Please no make-up, nail kinyarwanda, hairspray, perfume, deodorant, or body powder the day of surgery. No jewelry (including any body piercings) or valuables the day of surgery, leave them at home. Please take a shower or bath the night before, or the morning of, surgery with an antibacterial soap. Wear comfortable, loose fitting clothing. - Jewelry must be removed prior to entering the operating room. Rings and piercings that are not removed may be cut off. - The hospital will not accept responsibility for valuables. - Please leave all valuables, including medications, at home the day of surgery. If you are going home after surgery, a licensed driver material handler must drive you home. - NO public transportation without another adult if you receive anesthesia. - We recommend that an adult stay with you for 24 hours following discharge. - We also recommend that you do not drive, make important decision, drink alcoholic beverages, or take any drugs that were not prescribed by your health care provider for at least 24 hours after your discharge time. Follow any additional instructions given to you from your surgeon. If you or anyone in your household have experienced Covid symptoms in the past week, please notify your surgeon or the nurse liaison at the phone number below for possible testing. Telephone instructions given to PT - GEGE SOUZA and asked if any additional questions and then verbalized understanding. Patient advised to call surgeon office or pre surgery nurse liaison [phone] if any additional questions.
[2023-03-17] VITALS (8 sets, daily range): BP systolic 110–131; BP diastolic 67–88; PULSE 61–104; RESP 12–18; TEMP 36.2–36.4; O2SAT 98–100
--- NOTE | 2023-03-17 07:15 | WPDHPUPDATE1 ---
History and Physical Update Update Date/Time: 03/17/23 07:15 History and Physical has been reviewed, including an updated exam of the patient. There are NO changes in the patient's condition. Risks, benefits, and alternatives have been discussed and questions answered. Patient agrees to proceed with procedure.
[2023-03-17] MEDS: ACETAMINOPHEN 500 MG TABLET 1000 MG PO (07:39)
[2023-03-17] MEDS: KETOROLAC 15 MG/ML VIAL (*BKC) IV PUSH (08:01)
--- NOTE | 2023-03-17 08:23 | WPDANESEPPF ---
Anes - Initial Pre Proc Eval Procedure: Operation Date: 03/17/23 09:00 Proposed Procedures p Open Umbilical Hernia Repair with Mesh - Lolita Rasheed MD Date/Time: 03/17/23 08:23 Surgeon: Lolita Rasheed MD Pre Op Diagnosis: Umb Hernia (1cm) Patient Data Age: 27 Gender: F Height: 1.73 m Weight: 90.9 kg Last Vital Signs Temp 97.2 F L 03/17/23 07:57 Pulse 73 03/17/23 07:57 Resp 16 03/17/23 07:57 BP 131/88 03/17/23 07:57 Pulse Ox 100 03/17/23 07:57 O2 Del Method Room Air 03/17/23 07:57 Allergies Allergy/AdvReac Type Severity Reaction Status Date / Time Penicillins Allergy Unknown Hives Verified 03/17/23 07:30 Home Medications Medication Instructions Recorded Confirmed Type No Home Medications 03/11/23 03/11/23 History Patient hx anesthesia problems: none Family hx anesthesia problems: none Results Review: All pre-operative results and documents have been reviewed as part of the pre-operative evaluation. [facility] Past Medical History Medical History HTN (hypertension) Lumbar paraspinal muscle spasm Surgical History Surgical History H/O hand surgery History of dilation and curettage Hx of tonsillectomy Previous delivery, delivered Family History Family History Grandparent Family history of heart disease in male family member before age 55 Hypertension Mother Hypertension Social History Social History Smoking status: Never smoker Second hand tobacco smoke exposure: No Alcohol intake: never Substance use: never Substance use type: does not use Lack of Transportation: No Lack of Food: Never True Current Housing: I Have Housing Concerned About Future Housing: No Difficulty Paying Gas/Electric Bills: No Difficulty Paying for Meds: No Currently Unemployed: No Education: Bachelor's Degree Difficulty w/ Childcare or Family Care: No Living arrangements: with family Spiritual care concerns: No Anes - Eval Final PreProcedure Day of Procedure 03/17/23 08:23 Patient weight: obese Airway: Mallampati scale class II ASA classification: II Anesthesia type and monitoring: general LMA and ETT and standard monitoring Results Review: All pre-operative results and documents have been reviewed as part of the pre-operative evaluation. Informed Consent: The patient's anesthetic plan and its attendant risks and benefits were discussed with the patient/family/POA. Questions were solicited and answers provided to the satisfaction of the patient/family/POA.
[2023-03-17] MEDS: LACTATED RINGERS 1,000 ML 30 ML IV CONT (08:38)
[2023-03-17] MEDS: ceFAZolin 2 GM/D5W 50 ML 2 GM/50 ML BAG IVPB (08:44)
[2023-03-17] MEDS: BUPIVACAINE/EPINEPHRINE 0.5% 10 ML VIAL 20 ML INFILTRATE (09:08)
--- NOTE | 2023-03-17 09:17 | P.OP_ITS ---
Procedure Note - Detailed Date of Procedure 03/17/23 Pre-op Diagnosis umbilical hernia Post-op Diagnosis Same Procedure Performed open repair umbilical hernia measuring approximately 1.5 cm Surgeon Lolita Rasheed MD Anesthesia General and Local Indications 27-year-old female presenting to the office with an umbilical hernia. Patient reports enlargement and discomfort over the last few months. Findings 1.5 cm umbilical hernia Description of Procedure The patient was taken to the operating and placed in the supine position. After adequate induction of general anesthesia, the patient was prepped and draped in the normal sterile fashion. A time-out was then done to verify the patient's identity, as well as the procedure being performed. I began by localizing the area around the umbilicus. I then made a curvilinear infraumbilical incision. This incision was taken down through the dermis and subcutaneous tissue to the level of fascia. I was then able to get around the umbilicus and hernia supe riorly. I then carefully the umbilicus off the hernia sac. Once achieved, I excised the hernia sac. The contents of the hernia were noted to be some preperitoneal fat that was viable so this was reduced back into the peritoneal cavity. This left approximately 1.5 cm defect. This defect was then closed primarily with interrupted 0 Ethibond sutures. I then reapproximated the umbilicus to the fascia with a 3-0 Vicryl U-stitch. The subcutaneous tissue was closed with 3-0 Vicryl suture. The skin was closed with 4-0 Monocryl subcuticular suture. Dermabond was placed on the wound. The patient tolerated the procedure well and was extubated postoperatively. She will be transferred to the recovery room in stable condition. Estimated Blood Loss 5 Pathology None sent Complications No immediate complications Condition Stable Disposition PACU [facility] Billing Surgery - Charge Forward: Surgery Billing
[2023-03-17] MEDS: SCOPOLAMINE 1.5 MG PATCH TRANSDERM (09:36)
== END 2023-03-17 11:17 | disposition home or self-care (01) ==
PROVIDERS: PCP Family Medicine; Visit Provider Surgery
PROC: (CPT 49591; principal; 2023-03-17 09:00)
DX: K42.9 Umbilical hernia without obstruction or gangrene (principal); I10 Essential (primary) hypertension; Z82.49 Family history of ischemic heart disease and other diseases of the circulatory system; E66.9 Obesity, unspecified; Z68.30 Body mass index [BMI] 30.0-30.9, adult
CPT/HCPCS: 49591; A9270; J0690; J1100; J1200; J1630; J1885; J2250; J2405; J2704; J3010; J7120

== ENCOUNTER 2024-01-20 14:43 | Emergency (ER) | payer OTHER, SELFPAY ==
--- NOTE | ~2024-01-20 | CT_ITS ---
EXAMINATION: CT abdomen pelvis w con DATE: 01/20/2024 16:02 INDICATION: Left lower quadrant abdominal pain. Nausea. Diarrhea. TECHNIQUE: Computed tomography (CT) of the abdomen and pelvis was performed with 100 mL Omnipaque 350 intravenous contrast. Automated exposure control and iterative reconstruction technique were employe d. The dose-length product was 501.82 mGy-cm. COMPARISON: None. FINDINGS: The visualized portions of the lung bases demonstrate mild atelectasis. No pleural effusion . The heart size is normal. No pericardial effusion. There is a 5 mm cyst in the liver. The gallbladd er, spleen, pancreas, and adrenal glands are normal. There are cysts in the kidneys measuring up to 1 1 mm on the right. There are no dilated loops of bowel. The appendix is not visualized. There are no pathologically enlarged lymph nodes. There is no free intraperitoneal fluid. There is mild thoracic a nd lumbar spondylosis. IMPRESSION: 1. No etiology for the patient's symptoms. Reviewed, dictated and finalized at location A.
[2024-01-20 14:44] VITALS: BP 127/79; PULSE 75; RESP 18; TEMP 36.3; O2SAT 100
--- NOTE | 2024-01-20 15:20 | ED.ABDPAIN ---
HPI - Abdominal Pain General Chief Complaint: Abdominal Pain <Emily Zarate PA-C - Last Filed: 01/20/24 15:27> Stated Complaint: abdominal pain <TOSIN Zuluaga Last Filed: 01/20/24 15:27> Time Seen by Provider: 01/20/24 15:20 <Emily Zarate PA-C - Last Filed: 01/20/24 15:27> Focused HPI: Patient is a 28 y/o female who presents to the ED with c/o L sided abdominal pain. Patient reports She had an episode of left mid to lower abdominal pain last Tuesday which last approximately 45 minutes before resolving on its own. She then developed diarrhea throughout the night. Reported having at least 5 episodes of diarrhea from 1:00 a.m. to 6:00 a.m. throughout the night. Denies rectal bleeding or melena. She would work this morning, but began having recurrent left mid to lower abdominal pain since around 9:00 a.m.. States the pain has been constant since it began again. Reports nausea, indigestion. Denies vomiting. Denies fevers. Denies history of diverticulitis or ovarian cysts. GENERAL: Well-appearing, well-nourished, and in no acute distress. HEAD: Normocephalic, atraumatic. CHEST: Clear to auscultation. ?No respiratory distress. HEART: Regular rate and rhythm.? ABD: Mild TTP in L mid abdomen. No rebound. Normoactive BS. NEURO: ?Alert and oriented x3. Patient screened in triage and initial orders placed.? ?Additional care and disposition to be based upon?diagnostic testing and treatment. <Emily Zarate PA-C - Last Filed: 01/20/24 15:27> Source: patient <TOSIN Zuluaga Last Filed: 01/20/24 15:27> family ( fiance) <Farideh Kim MD - Last Filed: 01/21/24 09:21> Mode of arrival: ambulatory <TOSIN Zuluaga Last Filed: 01/20/24 15:27> Limitations: no limitations <TOSIN Zuluaga Filed: 01/20/24 15:27> History of Present Illness HPI narrative: Agree with the above with the following additions/corrections: she denies any fever but she did feel cold and chilled last night. She was also feeling nauseated but denies any vomiting. She states the pain the left side of her abdomen is constant, primary left upper quadrant but some left lower quadrant. The diarrhea this morning woke her from her sleep. She denies any bloody stool. No history of GI issues. Last bowel movement at approximately 7 this morning. Famotidine she had initially received after MSE helped a little but she states that the pain essentially remained constant. She denies any antibiotics recently. She had pain similar to this last Tuesday that lasted 45 minutes. <Farideh Kim MD - Last Filed: 01/21/24 09:21> Related Data Allergies/Adverse Reactions: Allergies Allergy/AdvReac Type Severity Reaction Status Date / Time Penicillins Allergy Unknown Hives Verified 01/20/24 14:50 <Emily Zarate PA-C - Last Filed: 01/20/24 15:27> [facility] Past Medical History Medical History: Medical History (Updated 01/21/24 @ 00:00 by Angi Kaur) HTN (hypertension) Lumbar paraspinal muscle spasm <Emily Zarate PA-C - Last Filed: 01/20/24 15:27> Surgical History Surgical History: Surgical History (Updated 01/20/24 @ 15:24 by Emily Zarate PA-C) H/O hand surgery History of dilation and curettage History of tubal ligation History of umbilical hernia repair open repair umbilical hernia measuring approximately 1.5 cm on 03/17/23 PDC Hx of tonsillectomy Previous delivery, delivered <Emily Zarate PA-C - Last Filed: 01/20/24 15:27> Family History Family History: Family History Grandparent Family history of heart disease in male family member before age 55 Hypertension Mother Hypertension <Emily Zarate PA-C - Last Filed: 01/20/24 15:27> Social History Social History: Social H
[2024-01-20 15:52] LABS: BEDSIDEPREGUCG Negative (Negative)
[2024-01-20 15:57] LABS: Basophils Percent Auto 0.5 % (0.2-1.2); Eosinophils Absolute Auto 0.1 K/mm3 (0-0.3); Eosinophils Percent Auto 1.2 % (0-4.4); Hematocrit 44.2 % (37.0-47.0); Hemoglobin 14.5 g/dL (12.0-15.0); Immature Granulocyte Absolute 0.01 K/mm3 (0.00-0.031); Immature Granulocyte Percent A 0.2 % (0-0.5); Lymphocytes Absolute Auto 2.68 K/mm3 (0.9-3.2); Lymphocytes Percent Auto 46.2 % (18.3-44.2); Mean Corpuscular HGB Conc 32.8 g/dl (32-36); Mean Corpuscular Hemoglobin 29.1 pg (26-34); Mean Corpuscular Volume 88.6 fl (80-100); Monocytes Absolute Auto 0.5 K/mm3 (0.1-0.6); Monocytes Percent Auto 9.3 % (2.6-8.5); Neutrophils Absolute Auto 2.5 K/mm3 (1.3-6.7); Neutrophils Percent Auto 42.6 % (45.5-73.1); Platelet Count Result 193 k/mm3 (150-375); Red Blood Count 4.99 M/mm3 (4.2-5.4); Red Cell Distribution Width 12.6 % (11.5-14.5); White Blood Count 5.8 K/mm3 (4.5-10.0)
[2024-01-20 16:04] LABS: Add Urine Microscopic? YES; Appearance Urine Clear (Clear); Bacteria Urine None Seen /hpf; Bilirubin Urine Negative (Negative); Blood Urine Negative (Negative); Color Urine Yellow (Yellow); Glucose Urine UA Negative (Negative); Ketones Urine Negative (Negative); Leukocyte Esterase Ur Trace LEU/UL (Negative); Nitrate Urine Negative (Negative); Non Pathogenic Casts 0-2; Protein Urine Negative (Negative); RBC Urine 0-2 /hpf (0-2); Specific Grav Ur 1.007 (1.001-1.035); Squamous Epithelial Cell Urine None Seen /hpf (Few); Urobilinogen Urine 0.2 mg/dL (<2.0); WBC Urine 0-5 /hpf (0-3); pH Urine 5.5 (5.0-9.0)
[2024-01-20 16:07] LABS: Alanine Aminotransferase 17 U/L (6-35); Albumin Level 4.7 g/dL (3.5-5.1); Alkaline Phosphatase 66 U/L (38-126); Anion Gap 8 mmol/L (4-12); Aspartate Amino Transferase 29 U/L (14-36); Bilirubin,Total 0.8 mg/dL (0.2-1.3); Blood Urea Nitrogen 8 mg/dL (7-17); Calcium 9.3 mg/dL (8.4-10.2); Carbon Dioxide 31 mmol/L (22-30); Chloride 102 mmol/L (98-107); Estimated CRCL calculation 102 ml/min; Estimated Glomerular Filt Rate > 60; Glucose 88 mg/dL (65-110); Lipase 281 U/L (23-300); Potassium 3.6 mmol/L (3.4-5.0); Sodium 141 mmol/L (137-145)
[2024-01-20] MEDS: FAMOTIDINE 20 MG/2 ML VIAL IV PUSH (17:05)
[2024-01-20] MEDS: ONDANSETRON INJ 4 MG/2 ML VIAL IV PUSH (18:14)
[2024-01-20] MEDS: DICYCLOMINE HCL 10 MG CAPSULE PO (18:14)
[2024-01-20 18:32] LABS: Influenza A QL RT-PCR Negative (Negative); Influenza B QL RT-PCR Negative (Negative); SARS-CoV-2 RNA PCR Negative (Negative)
[2024-01-20 19:37] VITALS: BP 129/85; PULSE 79; RESP 20; O2SAT 100
[2024-01-27 12:44] LABS: Estimated CRCL calculation 90 ml/min; Estimated Glomerular Filt Rate > 60
== END 2024-01-20 19:38 | disposition home or self-care (01) ==
PROVIDERS: Emergency Provider Student in an Organized Health Care Education/Training Program; PCP Family Medicine
DX: R10.32 Left lower quadrant pain (principal); R10.12 Left upper quadrant pain; R19.7 Diarrhea, unspecified; Z20.822 Contact with and (suspected) exposure to COVID-19; I10 Essential (primary) hypertension
CPT/HCPCS: 36415; 74177; 80053; 81001; 81025; 82565; 83690; 85025; 87636; 96374; 96375; 99284; A9270; J2405; Q9967

== ENCOUNTER 2024-05-03 13:09 | Outpatient (CLI) | payer BC, SELFPAY | END 2024-05-03 13:10 | disposition home or self-care (01) | LOC: ANHCARD 13:13 | PROVIDERS: PCP Family Medicine | DX: R07.89 Other chest pain (principal); R00.2 Palpitations; R01.1 Cardiac murmur, unspecified | CPT/HCPCS: 93242 ==

== ENCOUNTER 2024-05-11 10:48 | Outpatient (CLI) | payer BC, SELFPAY ==
--- NOTE | ~2024-05-11 | CT_ITS ---
Clinical Indication: Calcified hilar/mediastinal lymph nodes CT Scan of the Chest with Contrast: Technique: Contiguous sections were acquired throughout the chest after intravenous administration of 75 cc of Omnipaque 350. Dose reduction technique was used on this scan by utilizing automated exposu re control and iterative reconstruction technique. The dose-length product (DLP) was 174.05 mGy-cm. Findings: There is no evidence of any significant mediastinal, hilar or axillary lymphadenopathy. Small calcifi ed right hilar lymph node noted. There is no evidence of aortic dissection or aneurysm. There is no evidence of pleural or pericardial effusion. The lungs are clear. No pulmonary nodules or infiltrates are noted. Images through the upper abdomen reveal no abnormalities. Impression: Clear lungs. Single small calcified right hilar lymph nodes. Reviewed, dictated and finalized at [facility]. [employer] Impression: Clear lungs. Single small calcified right hilar lymph nodes.
== END 2024-05-11 10:49 | disposition home or self-care (01) ==
PROVIDERS: PCP Family Medicine
DX: R07.89 Other chest pain (principal); I89.8 Other specified noninfective disorders of lymphatic vessels and lymph nodes
CPT/HCPCS: 71260; Q9967

== ENCOUNTER 2024-07-21 07:46 | Outpatient (CLI) | payer BC, SELFPAY ==
--- OUTSIDE RECORDS SUMMARY | 2024-07-21 07:49 | XMS_ITS | Clinical Summary ---
Author Organization [facility] Address [address] [place] [address] Care Team Providers Care Acoustical Engineer Name Role Phone Unavailable Primary Care Provider Unavailabl e Source Comments [facility],non-owned Affiliates and Associated Physician Practices is amultiple site organization consisting of ambulatory clinics and hospital sitesin [place], [place], [place] and [place]. This disclosure is being madepursuant to the Care Everywhere program and may not contain all information available regarding this patient. Last updated 18.[facility] [employer] Allergies Active Allergy Reactions Criticality Noted Date Comments Penicillins Urticaria Medium 02/02/2017 Immunizations Name Administration Dates Next Due INFLUENZA VACCINE, QUADR. (F LUZONE; FLULAVAL; FLUARIX; AFLURIA QUADRIVALENT; 6MO+), 0.5 ML (IIV4) 03/06/2019,02/22/2018,02/02/2017 Social History Tobacco Use Types Packs/Day Years Used Date Smoking Tobacco: Never Assessed Sex and Gender Information Value Date Recorded Sex Assigned at Not on file Gender Identity Not on file Sexual Orientation Not on file Plan of Treatment Health Maintenance Due Date Last Done Comments PAP SMEAR 1993 HIV SCREENING 2008 HEPATITIS C SCREENING 11/09/2011 DTAP/TDAP/TD VACCINES (1 - Tdap) 2012 HEPATITIS B VACCINE (1 of 3 - 19+ 3-dose series) 2012 COVID-19 VACCINE (1 - 2023-2 5 season) 2024 INFLUENZA VACCINE (#1) 2024 9, 02/22/2018, 02/02/2017 DEPRESSION SCREENING 05/09/2024 ZOSTER VACCINE (1 of 2) 11/14/2043 HIB VACCINE Aged Out No longer eligi ble based on patient's age to complete this topic HPV VACCINE Aged Out No longer eligi ble based on patient's age to complete this topic MENINGOCOCCAL (Group B) VACCINE SHARED DECISION-MAKING Aged Out No longer eligible based on patient's age to complete this topic MENINGOCOCCAL GROUPS A/C/Y/W VACCINE Aged Out No longer eligible b ased on patient's age to complete this topic PNEUMOCOCCAL VACCINE Aged Out No long er eligible based on patient's age to complete this topic
--- OUTSIDE RECORDS SUMMARY | 2024-07-21 07:49 | XMS_ITS | Referral Summary ---
Author Organization [facility] Address [address] [place] [address] Care Team Providers Care Raveler Name Role Phone Unavailable Primary Care Provider Unavailabl e Source Comments [facility],non-owned Affiliates and Associated Physician Practices is amultiple site organization consisting of ambulatory clinics and hospital sitesin [place], [place], [place] and [place]. This disclosure is being madepursuant to the Care Everywhere program and may not contain all information available regarding this patient. Last updated 18.[facility] [employer] Allergies Active Allergy Reactions Criticality Noted Date [...] Orientation Not on file Plan of Treatment Not on file
--- OUTSIDE RECORDS SUMMARY | 2024-07-21 07:49 | XMS_ITS | Patient Health Summary ---
Author Organization [facility] Address [address] [place] [address] Care Team Providers Care Diagnostic Cardiac Sonographer Name Role Phone Unavailable Primary Care Provider Unavailabl e Note from [facility],non-owned Affiliates and Associated Physician Practices is amultiple site organization consisting of ambulatory clinics and hospital sitesin [place], [place], [place] and [place]. This disclosure is being madepursuant to the Care Everywhere program and may not contain all information available regarding this patient. Last updated 18.[facility] Allergies * Penicillins(Urticaria) -Medium Criticality Immunizations * INFLUENZA VACCINE, QUADR. (FLUZONE; FLULAVAL; FLUARIX; AFLURIA QUADRIVALENT; 6MO+), 0.5 ML (IIV4)(Given 03/06/2019, 02/22/2018, 02/02/2017) Social History Tobacco Use Types Packs/Day Years Used Date Smoking Tobacco: Never Assessed Sex and Gender Information Value Date Recorded Sex Assigned at Not on file Gender Identity Not on file Sexual Orientation Not on file
--- OUTSIDE RECORDS SUMMARY | 2024-07-21 07:49 | XMS_ITS | Clinical Summary ---
Author Organization [facility] Address [facility] [address] [place] [address] Care Team Providers Care Consulting Solution Director Name Role Phone Jasson Grimes MD Primary Care Provider [phone] Allergies Active Allergy Reactions Criticality Noted Date Comments Penicillins Hives 04/11/2024 Medications No known medications Social History Tobacco Use Types Packs/Day Years Used Date Smoking Tobacco: Never Smokeless Tobacco: Never Tobacco Cessation:Counseling Given: Not Answered Alcohol Use Standard Drinks/Week Comments Yes 0 (1 standard drink = 0.6 oz pur e alcohol) social Comments No Sex and Gender Information Value Date Recorded Sex Assigned at Not on file Legal Sex Female 5:27 PM WELD FITTER Gender Identity Not on file Sexual Orientation Not on file Last Filed Vital Signs Vital Sign Reading Time Taken Comments Blood Pressure 126/84 04/11/2024 9:00 PM WELD FITTER Pulse 67 04/11/2024 9:00 PM WELD FITTER Temperature 36.7 C (98 F) 04/11/2024 5:41 PM WELD FITTER Respiratory Rate 10 04/11/2024 9:00 PM WELD FITTER Oxygen Saturation 98% 04/11/2024 9:00 PM WELD FITTER Inhaled Oxygen Concentration - - Weight - - Height - - Body Mass Index - - Plan of Treatment Health Maintenance Due Date Last Done Comments Cervical Cancer Screening Pa p Smear (Age 30 to 64) Every 3 Years 1993 Annual Physical 1996 Hepatitis C 11/14/2011 DTaP, Tdap and Td Vaccines ( 1 - Tdap) 2012 Hepatitis B Vaccines (1 of 3 - 19+ 3-dose series) 2012 Cervical Cancer Screening Pa p with HPV Testing (Age 30 to 64) Every 5 Years 11/14/2023 Cervical Cancer Screening [facility] HPV 11/14/2023 COVID-19 Vaccine (2023-2 5 season) 2024 Influenza Adult (#1) 2024 03/06/2019, 02/22/2018, 02/02/2017 HPV Vaccines Aged Out No longer eligi ble based on patient's age to complete this topic Meningococcal B Vaccine Aged Out No l onger eligible based on patient's age to complete this topic Meningococcal Vaccine Aged Out No michelle tony eligible based on patient's age to complete this topic Pneumococcal Vaccine: Pediatrics (0 to 5 Years) and At-Risk Patients (6 to 64 Years) Aged Out No longer eligible b ased on patient's age to complete this topic RSV Immunizations Under 20 Months Aged Out No longer eligible b ased on patient's age to complete this topic Insurance [employer] OPEN ACCESS [facility] Care Teams Consulting Solution Director Relationship Specialty Start Date End Date Jasson Grimes MD [address] [address] PCP - General FAMILY PRACTICE 04/11/24
[2024-07-21 08:19] LABS: Cholesterol 150 mg/dL (0-200); HDL Direct 44 mg/dL; Triglycerides 71 mg/dL (<150)
[2024-07-21 08:30] LABS: LDL Cholesterol Direct 81 mg/dL
[2024-07-21 08:34] LABS: Vitamin D 25 Hydroxy 29.4 ng/mL
[2024-07-23 14:44] LABS: Thyroid Peroxidase Antibodies <1 IU/mL (<9)
== END 2024-07-21 07:47 | disposition home or self-care (01) ==
LOC: ANHLAB 07:47
PROVIDERS: PCP Family Medicine
DX: Z13.220 Encounter for screening for lipoid disorders (principal); Z13.29 Encounter for screening for other suspected endocrine disorder; Z83.49 Family history of other endocrine, nutritional and metabolic diseases; E55.9 Vitamin D deficiency, unspecified
CPT/HCPCS: 36415; 80061; 82306; 84443; 86376